=== PATIENT | male | born 1950 | race Caucasian/White ===

== ENCOUNTER → 2016-05-17 | Day surgery (SDC) | payer MEDICARE ==
[~2016-05-17] MED LIST: AMLODIPINE BESY10 MG PO; COUMADIN; COUMADIN2.5 MG PO; COUMADIN5 MG PO; EXCEDRIN EXTRA1 EAC3 PO; LOVENOX SUBQ; METOPROLOL SUCC50 MG PO; PRILOSEC PO; PRINIVIL40 MG PO; RANEXA1000 MG PO
--- NOTE | ~2016-05-17 | OR ---
Unit #: [id number] #: [id number] Patient: IRAIS GRAYSON [id number] [address] [place], [place] [address] [id number] O MR#: [id number] NAME: IRAIS GRAYSON ROOM: Date of Procedure: 05/17/2016 Admission Date: 05/17/2016 Surgeon: Alexander Carrillo M.D. : 1950 Attending Physician: Alexander Carrillo M.D. Referring Physician: Alexander Carrillo M.D. Primary Care Physician: Raul Thornton M.D. OPERATIVE REPORT PREOPERATIVE DIAGNOSES Periumbilical abdominal pain. In addition, the patient needs a colorectal cancer screening. PROCEDURES PERFORMED Upper gastrointestinal endoscopy and biopsy as well as colonoscopy up to cecum and terminal ileum with excellent preparation and good visualization. POSTOPERATIVE DIAGNOSES For upper endoscopy; the patient had a mild prepyloric antral gastritis. A biopsy was obtained from the antrum for CLOtest. For colonoscopy; mild sigmoid and descending colon diverticulosis. Otherwise, normal examination up to cecum and terminal ileum. The quality of the prep was excellent. RECOMMENDATIONS The patient will be followed up in the office in 2 to 3 months' time along with the results of the CLOtest. In addition, he needs a repeat surveillance colonoscopy in 10 years. SEDATION USED MAC. DESCRIPTION OF PROCEDURE Following detailed explanation of potential risks and complications of an upper endoscopy and a colonoscopy, namely perforation, bleeding, and complications related to sedation, the patient was brought to GI lab and laid in the left lateral decubitus position. A lubricated tip of the Olympus video upper endoscope was passed through the bite block into the proximal esophagus under direct vision. The entire esophageal mucosa was examined and appeared normal. Z-line was nicely demarcated with there being no esophagitis or hiatus hernia. The scope was then advanced into the gastric cavity and the latter was insufflated. Mucosa of the fundus, body, and antrum was examined and the patient was noted to have mild prepyloric antral erosive gastritis. Pylorus was intubated with visualization of the normal duodenal bulb and second and third part of the duodenum. Upon withdrawal and retroflexion, the incisura, cardia, and greater curve were examined and a biopsy was obtained from the antrum for CLOtest. The scope was then withdrawn into the distal esophagus. The entire esophageal mucosa was examined all the way up to pharynx and no additional findings were noted. Unit #: [id number] #: [id number] Patient: IRAIS GRAYSON The examination table was then turned by 180 degrees and the patient was positioned for a colonoscopy. A digital rectal examination was performed, which was normal. Lubricated tip of the Olympus video colonoscope was inserted through the anus and advanced under direct vision. The scope was advanced and passed up to sigmoid into descending colon. Scant small diverticula were seen in this area. The scope tip was then navigated all the way up to cecum with visualization of the ileocecal valve and the appendiceal orifice. Preparation was excellent with good visualization and photodocumentation was obtained. Last few inches of the terminal ileum were also visualized after intubation of the ileocecal valve and appeared normal. Successive segments of the colonic mucosa were examined upon withdrawal and appeared unremarkable with there being no polyps, mass, lesions, or AVMs. Other than the scant diverticula seen in the sigmoid, no other abnormalities were found. The patient did not have any hemorrhoids at the anal verge. The scope was then withdrawn and the patient returned to the recovery area. He tolerated the procedure without any postprocedure complications. The patient was also given prophylactic antibiotics namely vancomycin and gentamicin before the procedure and following the procedure, instructions for use of Coumadin and Lovenox were given to the patient as per Dr. Araya' instructions. Dictated by... Abe Bates/jonna TD: 05/17/2016 21:46 JOB #: [id number] CC: Abe Quispe M.D. OPERATIVE REPORT Page 1 of 1 X Alexander Carrillo MD X PROCEDURE OPERATIVE NOTE
== END | disposition home or self-care (01) ==
LOC: COPS 09:23
DX: Z12.11 Encounter for screening for malignant neoplasm of colon (principal); K57.30 Diverticulosis of large intestine without perforation or abscess without bleeding; K29.00 Acute gastritis without bleeding
CPT/HCPCS: 43239; G0121; 87077; J1580; J2250; J3370

== ENCOUNTER → 2016-08-02 | Outpatient (CLI) | payer MEDICARE ==
--- NOTE | ~2016-08-02 | US136 ---
[facility] A Service of [facility] & [facility] RADIOLOGY TEXT RESULTS PATIENT: IRAIS GRAYSON LOCATION: CNIV : 52 UNIT #: [id number] AGE: [address]: TEE LUDWIG MD SEX: M ORDER DR: [id number] [facility] [address]. [place], [place] [address] [id number] O MR#: [id number] Acc #: [id number] NAME: IRAIS GRAYSON : 1950 SEX: M STUDY DATE/TIME: 08/02/2016 8:23 UNIT: CNIV ROOM: STUDY DESCRIPTION: U/L Ext Art Study [facility] Bil Attending Physician: Tee Ludwig M.D. Referring Physician: Tee Ludwig M.D. Ordering Physician: Tee Ludwig M.D. Primary Care Physician: Tee Ludwig M.D. MEDICAL IMAGING REPORT This report is preliminary unless electronic signature is present EXAM Ankle-brachial indices, 08/02/2016 HISTORY Claudication FINDINGS The right brachial artery pressure is 221. The right dorsalis pedis pressure is 163, with an ankle-brachial index of 0.74. The right posterior tibial pressure is 150, with an ankle-brachial index of 0.68. The right digital pressure is 117, with a toe index of 0.53. The left brachial artery pressure is 210. The left dorsalis pedis pressure is 193, with an ankle-brachial of 0.87. The left posterior tibial pressure is 203, with an ankle-brachial index of 0.92. The left digital pressure is 152, with a toe index of 0.69. The right posterior tibial, left posterior tibial and dorsalis pedis waveforms are triphasic. The right dorsalis pedis waveform is monophasic. Digital waveforms are moderately blunted. IMPRESSION 1. The right DEJAN is 0.74, consistent with moderate arterial insufficiency. 2. The left DEJAN is 0.92, consistent with mild arterial insufficiency. Dictated by... Dev Siu M.D. THIS IS AN ELECTRONICALLY VERIFIED REPORT Dev Siu M.D. at 08/05/2016 1:41 PM AC/sally STS. [facility] A Service of [facility] & [facility] RADIOLOGY TEXT RESULTS PATIENT: IRAIS GRAYSON LOCATION: CNIV : 52 UNIT #: [id number] AGE: [address]: TEE LUDWIG MD SEX: M ORDER DR: TD: 08/02/2016 15:13 JOB #: [id number] MEDICAL IMAGING REPORT Page 1 of 1 COPY
== END | disposition home or self-care (01) ==
LOC: CNIV 08:10
DX: I73.9 Peripheral vascular disease, unspecified (principal)
CPT/HCPCS: 93922

== ENCOUNTER → 2016-09-11 | Outpatient (CLI) | payer MEDICARE ==
--- NOTE | ~2016-09-11 | US37 ---
[facility] A Service of [facility] & [facility] RADIOLOGY TEXT RESULTS PATIENT: IRAIS GRAYSON JR LOCATION: CNIV : 51 UNIT #: [id number] AGE: [address]: Dwayne Winkler MD SEX: M ORDER DR: [id number] [facility] [address] [place], [place] [address] [id number] O MR#: [id number] [facility] #: [id number] NAME: IRAIS GRAYSON : 1950 SEX: M STUDY DATE/TIME: 09/11/2016 9:21 UNIT: CNIV ROOM: STUDY DESCRIPTION: US Carotid W/Doppler Bilateral Attending Physician: Dwayne Winkler M.D. Referring Physician: Dwayne Winkler M.D. Ordering Physician: Dwayne Winkler M.D. Primary Care Physician: Raul Thornton M.D. MEDICAL IMAGING REPORT This report is preliminary unless electronic signature is present EXAM Carotid duplex scan date of examination 09/11/2016 HISTORY Cervical bruit. FINDINGS The right common carotid artery has a small amount of heterogeneous plaque. There is dense plaque in the right carotid bulb which extends up in the proximal internal and external carotid arteries. Peak systolic velocity in the mid right internal carotid artery is 80 cm/sec with an end diastolic velocity of 19 cm/sec. The ICA/CCA ratio on the right is 1.37. Peak systolic velocity in the right external carotid artery is 76 cm/sec. The right vertebral artery is patent with antegrade flow. The left common carotid artery has a small amount of heterogeneous plaque. There is heterogeneous dense plaque in the left carotid bulb which extends up into the proximal internal and external carotid arteries. Peak systolic velocity in the mid left internal carotid artery is 244 cm/sec with an end diastolic velocity of 51 cm/sec. The ICA/CCA ratio on the left is 4.53. Peak systolic velocity in the left external carotid artery is 62 cm/sec. The left vertebral artery is patent with antegrade flow. IMPRESSION Small amount of plaque, but no significant stenosis (less than 50%) in the right internal carotid artery. Severe stenosis (greater than or equal to 70%) of the left internal carotid artery. No significant stenosis of the external carotid arteries on either side. Patent vertebral arteries bilaterally with antegrade flow. [facility] A Service of [facility] RADIOLOGY TEXT RESULTS PATIENT: IRAIS GRAYSON JR LOCATION: CNIV : 51 UNIT #: [id number] AGE: [address]: Dwayne Winkler MD SEX: M ORDER DR: Dictated by... Tristin Bustamante M.D. THIS IS AN ELECTRONICALLY VERIFIED REPORT Tristin Bustamante M.D. at 09/12/2016 9:34 AM TOYIN/franciscor TD: 09/11/2016 14:17 JOB #: [id number] MEDICAL IMAGING REPORT Page 1 of 1 COPY
== END | disposition home or self-care (01) ==
LOC: CNIV 08:50
DX: R09.89 Other specified symptoms and signs involving the circulatory and respiratory systems (principal); I73.9 Peripheral vascular disease, unspecified; I10 Essential (primary) hypertension; E78.5 Hyperlipidemia, unspecified; I65.23 Occlusion and stenosis of bilateral carotid arteries
CPT/HCPCS: 93880

== ENCOUNTER → 2016-10-25 | Outpatient (CLI) | payer MEDICARE ==
--- NOTE | ~2016-10-25 | US82 ---
[facility] A Service of [facility] & [facility] RADIOLOGY TEXT RESULTS PATIENT: IRAIS GRAYSON JR LOCATION: CCAT : 51 UNIT #: [id number] AGE: [address]: Dwayne Winkler MD SEX: M ORDER DR: [id number] [facility] [address] [place], [place] [address] [id number] O MR#: [id number] Acc #: [id number] NAME: IRAIS GRAYSON : 1950 SEX: M STUDY DATE/TIME: 10/25/2016 10:27 UNIT: CCAT ROOM: STUDY DESCRIPTION: LE Art/Art [employer] Comp Manuel Attending Physician: Dwayne Winkler M.D. Referring Physician: Dwayne Winkler M.D. Ordering Physician: Dwayne Winkler M.D. Primary Care Physician: Raul Thornton M.D. MEDICAL IMAGING REPORT This report is preliminary unless electronic signature is present EXAM Bilateral lower extremity arterial duplex HISTORY Bilateral fem-pop arterial stent 08/2016. FINDINGS The right common femoral artery has biphasic flow with velocity of 185 cm/sec. The right profunda femoral artery has a velocity of 134 cm/sec with biphasic flow. The proximal superficial femoral artery has biphasic flow with a velocity of 116 cm/sec, mid 93 cm/sec, within the stent. The main portion of the stent has biphasic flow with a velocity of 63 cm/sec, and distal aspect of the stent has biphasic flow with a velocity of 114 cm/sec. Distal to the stent in the [place] superficial femoral artery, there is biphasic flow with a velocity of 136 cm/sec. The distal superficial femoral artery has biphasic flow with a velocity of 52 cm/sec. The second stent is visualized with a velocity flow of 60 cm/sec, biphasic flow at the proximal portion and the mid-portion 55 cm/sec, and the distal portion 65 cm/sec, going into the TP trunk. Distal to the stent in the [place] TP trunk, there is a velocity of 70 cm/sec. Right posterior tibial has biphasic flow with a velocity of 49 cm/sec. Left common femoral artery has biphasic flow with a velocity of 119 cm/sec, profunda artery has a velocity of 112 cm/sec. The proximal superficial femoral artery has a velocity of 86 cm/sec, biphasic flow, mid-superficial femoral artery 92 cm/sec. The proximal aspect of the stent, which starts at the mid-SFA, has a velocity of 82 cm/sec with biphasic flow, mid-stent 66 cm/sec, distal stent 82 cm/sec. Distal stent within the [place] superficial femoral artery has a velocity of 75 cm/sec. There is additional popliteal stent visualized with a velocity of 63 cm/sec at the proximal aspect, 63 cm at the mid-aspect, and 56 cm at the distal aspect, which appears to terminate in the TP trunk. The [place] [facility] A Service of [facility] RADIOLOGY TEXT RESULTS PATIENT: IRAIS GRAYSON JR LOCATION: [facility] : [birth year] UNIT #: [id number] AGE: [address]: Dwayne Winkler MD SEX: M ORDER DR: tibioperoneal trunk has a velocity of 83 cm/sec. The left posterior tibial artery has a velocity of 62 cm/sec. IMPRESSION 1. The right superficial femoral artery and popliteal artery stent appear patent with no duplex evidence of a high-grade stenosis. 2. The left superficial femoral artery and popliteal artery stent appear widely patent with no duplex evidence of high-grade stenosis. Dictated by... Dev Siu M.D. THIS IS AN ELECTRONICALLY VERIFIED REPORT Dev Siu M.D. at 10/28/2016 9:28 AM HARPREET/richie TD: 10/25/2016 16:35 JOB #: [id number] MEDICAL IMAGING REPORT Page 1 of 1 COPY
--- NOTE | ~2016-10-25 | CT17 ---
[facility] A Service of [facility] RADIOLOGY TEXT RESULTS PATIENT: IRAIS GRAYSON JR LOCATION: [facility] : 52 UNIT #: [id number] AGE: [address]: Dwayne Winkler MD SEX: M ORDER DR: [id number] [place] [address] [facility] [place], [place] [address] [id number] O MR#: [id number] [facility] #: [id number] NAME: IRAIS GRAYSON : 1950 SEX: M STUDY DATE/TIME: 10/25/2016 9:40 UNIT: [facility] ROOM: STUDY DESCRIPTION: CT Angio Head Attending Physician: Dwayne Winkler M.D. Referring Physician: Dwayne Winkler M.D. Ordering Physician: Dwayne Winkler M.D. Primary Care Physician: Raul Thornton M.D. MEDICAL IMAGING REPORT This report is preliminary unless electronic signature is present EXAM Head and neck CT angiogram with contrast DATE OF STUDY 10/25/2016 PROCEDURE Axial contrast enhanced head and neck CT angiogram with three dimensional reformats. This CT exam was performed with one or more of the following radiation dose reduction techniques: automatic exposure control, adjustment of mA and/or kV according to patient size, and iterative reconstruction. COMPARISON Carotid Doppler dated 09/11/2016. HISTORY Episodes of headache and blurred vision with dizziness for 3 years and abnormal carotid Doppler suggesting left internal carotid stenosis. 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 There is a left vertebral artery origin stent. The right vertebral artery is patent, but tiny. The left vertebral is patent throughout the neck and both supply the basilar artery, which is normal in caliber. There is plaque in the cervical common carotids and at the cervical carotid bifurcations. On the right, there is 10-20% ICA stenosis by NASCET criteria due to plaque in the mid to distal bulb. On the left, there is plaque in the mid bulb, with about 70% ICA stenosis by NASCET criteria. The upper cervical internal carotids are patent. [facility] A Service of [facility] RADIOLOGY TEXT RESULTS PATIENT: IRAIS GRAYSON JR [facility] [id number] : [birth year] UNIT #: [id number] AGE: [address]: Dwayne Winkler MD SEX: M ORDER DR: There is plaque with no more than mild narrowing in both carotid siphons. The anterior communicator is patent. Neither posterior communicatory is convincingly demonstrated. The dural venous sinuses are normal. There is symmetric distal runoff in the anterior, middle and posterior cerebral distributions intracranially. No convincing evidence of aneurysm or flow-limiting stenosis. There is no intracranial mass or abnormal enhancement. The brain itself appears normal. The cervical soft tissues are unremarkable. There is some emphysematous changes in the lung apices. There is modest spinal degenerative change, but no acute bony abnormality. IMPRESSION 1. About 70% left and 10-20% right ICA stenosis by NASCET criteria. 2. Dominant left vertebral artery with a patent left vertebral artery stent in place across its origin with some mild mid to distal stent, neointimal hyperplasia, but no significant in-stent re-stenosis. 3. Diminutive right vertebral artery with probably moderate ostial narrowing. 4. No intracranial aneurysm is seen or intracranial flow-limiting stenosis. Dictated by... Jorge A Barbour M.D. THIS IS AN ELECTRONICALLY VERIFIED REPORT Jorge A Barbour M.D. at 11/01/2016 7:33 AM TEV/to TD: 10/25/2016 19:04 JOB #: [id number] MEDICAL IMAGING REPORT Page 1 of 1 COPY
--- NOTE | ~2016-10-25 | US136 ---
[facility] A Service of [facility] & [facility] RADIOLOGY TEXT RESULTS PATIENT: IRAIS GRAYSON JR [facility] UNIT #: [id number] AGE: [address]: Dwayne Winkler MD SEX: M ORDER DR: [id number] [facility] [address] [place], [place] [address] [id number] O MR#: [id number] Acc #: [id number] NAME: IRAIS GRAYSON : 1950 SEX: M STUDY DATE/TIME: 10/25/2016 9:51 UNIT: CCAT ROOM: STUDY DESCRIPTION: U/L [facility] Art Study [facility] Bil Attending Physician: Dwayne Winkler M.D. Referring Physician: Dwayne Winkler M.D. Ordering Physician: Dwayne Winkler M.D. Primary Care Physician: Raul Thornton M.D. MEDICAL IMAGING REPORT This report is preliminary unless electronic signature is present EXAM Ankle-brachial indices 10/25/2016 CLINICAL HISTORY Status post bilateral femoral-popliteal stents placed 08/2016. FINDINGS The right brachial artery pressure is 181. The right posterior tibial pressure is 162, with ankle-brachial index of 0.90. The right dorsalis pedis pressure is 159, with an ankle-brachial index of 0.88. The right digital pressure is 125, with a toe index of 0.69. The left brachial artery pressure is 170. The left posterior tibial pressure is 173, with an ankle-brachial index of 0.96. The left dorsalis pedis pressure is 152, with an ankle-brachial index of 0.84. The left digital pressure is 125, with a toe index of 0.69. Right posterior tibial and dorsalis pedis waveforms are monophasic. Left posterior tibial and dorsalis pedis waveforms appear biphasic. Right ankle waveforms have a sharp upstroke with mildly blunted systolic peak. The left ankle waveforms demonstrate a sharp upstroke in systolic peak. IMPRESSION 1. The right DEJAN is 0.90, which is improved from the previous value of 0.74 performed in 07/2016. 2. The left DEJAN is 0.96, which is essentially the same as the previous value of 0.92. This value is within normal limits. [facility] A Service of [facility] RADIOLOGY TEXT RESULTS PATIENT: IRAIS GRAYSON JR LOCATION: [facility] : 51 UNIT #: [id number] AGE: [address]: Dwayne Winkler MD SEX: M ORDER DR: Dictated by... Dev Siu M.D. THIS IS AN ELECTRONICALLY VERIFIED REPORT Dev Siu M.D. at 10/28/2016 9:26 AM HARPREET/silva TD: 10/25/2016 13:53 JOB #: [id number] MEDICAL IMAGING REPORT Page 1 of 1 COPY
--- NOTE | ~2016-10-25 | CT23 ---
[facility] A Service of [facility] & [facility] RADIOLOGY TEXT RESULTS PATIENT: IRAIS GRAYSON JR LOCATION: [facility] : 52 UNIT #: [id number] AGE: [address]: Dwayne Winkler MD SEX: M ORDER DR: [id number] [place] [id number] [place], [place] [address] [id number] O MR#: [id number] Acc #: [id number] NAME: IRAIS GRAYSON : 1950 SEX: M STUDY DATE/TIME: 10/25/2016 9:40 UNIT: [facility] ROOM: STUDY DESCRIPTION: CT Angio Neck Attending Physician: Dwayne Winkler M.D. Referring Physician: Dwayne Winkler M.D. Ordering Physician: Dwayne Winkler M.D. Primary Care Physician: Raul Thornton M.D. MEDICAL IMAGING REPORT This report is preliminary unless electronic signature is present EXAM Head and neck CT angiogram with contrast FINDINGS Result text under order number [id number]. Please see this order for result text. Dictated by... Jorge A Barbour M.D. THIS IS AN ELECTRONICALLY VERIFIED REPORT Jorge A Barbour M.D. at 11/01/2016 7:33 AM TEV/to TD: 10/25/2016 20:00 JOB #: [id number] MEDICAL IMAGING REPORT Page 1 of 1 COPY
[2016-10-25 09:08] LABS: GLOM FILT RATE Estimated 79.2 mL/min (>60)
== END | disposition home or self-care (01) ==
LOC: CLAB 08:22 → CCAT 08:22
PROVIDERS: Surgery Vascular Surgery
DX: I73.9 Peripheral vascular disease, unspecified (principal); I65.23 Occlusion and stenosis of bilateral carotid arteries; I10 Essential (primary) hypertension; E78.5 Hyperlipidemia, unspecified; G62.9 Polyneuropathy, unspecified; I65.21 Occlusion and stenosis of right carotid artery; Z95.828 Presence of other vascular implants and grafts
CPT/HCPCS: 36415; 70496; 70498; 82565; 84520; 93922; 93925; Q9967